=== PATIENT | female | born 1975 | race Caucasian/White ===

== ENCOUNTER 2023-03-11 15:07 | Emergency (ER) | payer OTHER ==
[~2023-03-11] VITALS: Ht 157.5 cm; Wt 76.7 kg
[2023-03-11 15:26] VITALS: BP 130/96; TEMP 97.8; O2SAT 98
[2023-03-11] MEDS ORDERED: ACETAMINOPHEN ES 500 MG TABLET PO ONE (17:00)
[2023-03-11] MEDS ORDERED: ACETAMINOPHEN ES 500 MG TABLET ONE (17:12)
[2023-03-11] MEDS ORDERED: CYCL5TAB PO (17:40)
[2023-03-11] MEDS ORDERED: ACET-2605 PO (17:40)
== END 2023-03-11 18:35 | disposition home or self-care (01) ==
LOC: ER 15:09
DX: M54.2 Cervicalgia (principal); R51.9 Headache, unspecified; Z98.890 Other specified postprocedural states; Z79.899 Other long term (current) drug therapy; Z88.0 Allergy status to penicillin; Z91.040 Latex allergy status; V43.52XA Car driver injured in collision with other type car in traffic accident, initial encounter; Y93.89 Activity, other specified; Y92.89 Other specified places as the place of occurrence of the external cause; Y99.8 Other external cause status
CPT/HCPCS: 99283; J7030

== ENCOUNTER 2023-06-05 17:26 | Emergency (ER) | payer OTHER ==
[~2023-06-05] VITALS: Ht 157.5 cm; Wt 77.1 kg
[~2023-06-05 17:26] MED LIST: ACET-2605 PO; CYCL5TAB PO
[2023-06-05 18:24] LABS: BASOPHILS % (AUTO) 0.7 % (0.0-2.0); EOSINOPHILS # (AUTO) 0.1 K/uL (0.0-0.7); EOSINOPHILS % (AUTO) 1.8 % (0.0-6.0); HEMATOCRIT 34 % (33-45); HEMOGLOBIN 11.3 g/dL (11.5-14.8); LYMPHOCYTES # (AUTO) 2.3 K/uL (0.8-4.8); MEAN CORPUSCULAR HEMOGLOBIN 25 PG (26.0-33.0); MEAN CORPUSCULAR HGB CONC 33 g/dl (31.0-36.0); MEAN CORPUSCULAR VOLUME 76 fL (82-100); MONOCYTES # (AUTO) 0.4 K/uL (0.1-1.30); MONOCYTES % (AUTO) 7.2 % (2.0-12.0); NEUTROPHILS # (AUTO) 2.8 K/uL (1.8-8.9); NEUTROPHILS % (AUTO) 49.3 % (43.0-81.0); PLATELET COUNT (AUTO) 288 K/uL (150-450); RED CELL DISTRIBUTION WIDTH 26.9 % (11.5-15.0); WHITE BLOOD COUNT (AUTO) 5.7 K/uL (4.3-11.0)
[2023-06-05] MEDS ORDERED: METOCLOPRAMIDE HCL 10 MG/2 ML VIAL IV ONE (18:30)
[2023-06-05] MEDS ORDERED: diphenhydrAMINE HCL 50 MG/ML VIAL IV ONE (18:30)
[2023-06-05] MEDS ORDERED: ACETAMINOPHEN 325 MG TABLET PO ONE (18:30)
[2023-06-05 18:39] LABS: CALCIUM, SERUM 8.8 mg/dL (8.5-10.1); CARBON DIOXIDE 26 mmol/L (21-32); CHLORIDE 106 mmol/L (98-107); CREATININE 0.5 mg/dL (0.6-1.3); GLUCOSE 98 mg/dL (74-106); POTASSIUM 3.7 mmol/L (3.5-5.1); SODIUM SERUM 139 mmol/L (136-145); UREA NITROGEN, BLOOD 7 mg/dL (7-18)
[2023-06-05 18:52] LABS: NT-PRO BNP 274 pg/mL (0-125)
[2023-06-05] MEDS ORDERED: IOHEXOL-350 100 ML VIAL IV ONE (19:05)
[2023-06-05] MEDS ORDERED: IV NS 0.9% 250 ML IV ONE (19:05)
[2023-06-05] MEDS ORDERED: CT SWABBABLE VALVE TRANS SET 1 EA INFUS.SET MC ONE (19:05)
[2023-06-05] MEDS ORDERED: diphenhydrAMINE HCL 50 MG/ML VIAL ONE (19:15)
[2023-06-05] MEDS ORDERED: METOCLOPRAMIDE HCL 10 MG/2 ML VIAL ONE (19:16)
[2023-06-05] MEDS ORDERED: ACETAMINOPHEN 325 MG TABLET ONE (19:16)
[2023-06-05] MEDS ORDERED: AMLO2.5T4 PO (22:31)
[2023-06-05 22:50] VITALS: BP 131/88; TEMP 98.1; O2SAT 99
== END 2023-06-05 22:58 | disposition home or self-care (01) ==
LOC: ER 17:30
DX: R07.9 Chest pain, unspecified (principal); I10 Essential (primary) hypertension; R51.9 Headache, unspecified; R10.2 Pelvic and perineal pain; E78.5 Hyperlipidemia, unspecified; I48.91 Unspecified atrial fibrillation; Z88.0 Allergy status to penicillin; Z88.8 Allergy status to other drugs, medicaments and biological substances
CPT/HCPCS: 99285; 70498; 71045; 93005; 70496; 85025; 80048; 36415; 84484; 83880; 84702; J1200; J7050; Q9967; J2765

== ENCOUNTER 2023-06-11 17:34 | Emergency (ER) | payer OTHER ==
[~2023-06-11] VITALS: Ht 157.5 cm; Wt 76.7 kg
[~2023-06-11 17:34] MED LIST changes: +AMLO2.5T4 PO
[2023-06-11] MEDS ORDERED: ACETAMINOPHEN ES 500 MG TABLET ONE (17:57)
[2023-06-11] MEDS ORDERED: METOCLOPRAMIDE HCL 10 MG/2 ML VIAL ONE (17:57)
[2023-06-11] MEDS ORDERED: diphenhydrAMINE HCL 50 MG/ML VIAL ONE (17:58)
[2023-06-11] MEDS: IV NS 0.9% 1,000 ML BAG IV ONE (18:07)
[2023-06-11] MEDS: diphenhydrAMINE HCL 50 MG/ML VIAL IV ONE (18:07)
[2023-06-11] MEDS: METOCLOPRAMIDE HCL 10 MG/2 ML VIAL IV ONE (18:08)
[2023-06-11] MEDS: ACETAMINOPHEN ES 500 MG TABLET PO ONE (18:08)
[2023-06-11 18:20] LABS: BASOPHILS % (AUTO) 0.7 % (0.0-2.0); EOSINOPHILS # (AUTO) 0.1 K/uL (0.0-0.7); EOSINOPHILS % (AUTO) 1.5 % (0.0-6.0); HEMATOCRIT 38 % (33-45); HEMOGLOBIN 12.4 g/dL (11.5-14.8); LYMPHOCYTES # (AUTO) 2.8 K/uL (0.8-4.8); LYMPHOCYTES % (AUTO) 39.4 % (20.0-44.0); MEAN CORPUSCULAR HEMOGLOBIN 26 PG (26.0-33.0); MEAN CORPUSCULAR HGB CONC 33 g/dl (31.0-36.0); MEAN CORPUSCULAR VOLUME 79 fL (82-100); MONOCYTES # (AUTO) 0.6 K/uL (0.1-1.30); MONOCYTES % (AUTO) 7.8 % (2.0-12.0); NEUTROPHILS # (AUTO) 3.6 K/uL (1.8-8.9); NEUTROPHILS % (AUTO) 50.6 % (43.0-81.0); PLATELET COUNT (AUTO) 282 K/uL (150-450); RED BLOOD CELL COUNT(AUTO) 4.84 MIL/uL (4.0-5.2); RED CELL DISTRIBUTION WIDTH 25.2 % (11.5-15.0); WHITE BLOOD COUNT (AUTO) 7.2 K/uL (4.3-11.0)
[2023-06-11 18:44] LABS: CALCIUM, SERUM 9.6 mg/dL (8.5-10.1); CREATININE 0.5 mg/dL (0.6-1.3); POTASSIUM 3.3 mmol/L (3.5-5.1)
[2023-06-11 18:45] LABS: ALBUMIN 3.9 g/dL (3.4-5.0); BILIRUBIN,DIRECT 0.1 mg/dL (0.0-0.2); BILIRUBIN,TOTAL 0.2 mg/dL (0.2-1.0); TOTAL PROTEIN, SERUM 7.6 g/dL (6.4-8.2)
[2023-06-11] MEDS ORDERED: METO-295 PO (20:03)
[2023-06-12 03:10] VITALS: BP 163/98; TEMP 97.6; O2SAT 100
== END 2023-06-11 22:00 | disposition home or self-care (01) ==
LOC: ER 17:34
DX: R51.9 Headache, unspecified (principal); I48.91 Unspecified atrial fibrillation; Z88.0 Allergy status to penicillin; Z88.8 Allergy status to other drugs, medicaments and biological substances
CPT/HCPCS: 99285; 96374; 70450; 96361; 96375; 93005; 85025; 80048; 80076; 36415; J1200; J2765; J7030

== ENCOUNTER 2024-04-27 12:16 | Emergency (ER) | payer MEDICAID, OTHER ==
[~2024-04-27] VITALS: Ht 157.5 cm; Wt 77.1 kg
[~2024-04-27 12:16] MED LIST changes: +METO-295 PO
[2024-04-27] MEDS: IV NS 0.9% 1,000 ML BAG IV ONE ×2 (13:17→17:33)
[2024-04-27] MEDS ORDERED: ONDANSETRON HCL/PF 4 MG/2 ML VIAL ONE (13:19)
[2024-04-27] MEDS ORDERED: KETOROLAC TROMETHAMINE 15 MG/ML VIAL ONE (13:19)
[2024-04-27] MEDS: KETOROLAC TROMETHAMINE 15 MG/ML VIAL IV ONE (13:24)
[2024-04-27] MEDS: ONDANSETRON HCL/PF 4 MG/2 ML VIAL IVP ONE (13:24)
[2024-04-27 13:34] LABS: CALCIUM, SERUM 8.6 mg/dL (8.5-10.1); CREATININE 0.6 mg/dL (0.6-1.3); POTASSIUM 3.5 mmol/L (3.5-5.1)
[2024-04-27 13:40] LABS: ALBUMIN 3.2 g/dL (3.4-5.0); BILIRUBIN,DIRECT 0.1 mg/dL (0.0-0.2); BILIRUBIN,TOTAL 0.3 mg/dL (0.2-1.0)
[2024-04-27 13:47] LABS: APPEARANCE,URINE CLEAR (CLEAR); BILIRUBIN,URINE 1+ (NEGATIVE); BLOOD, URINE 3+ Ery/uL (NEGATIVE); COLOR,URINE YELLOW (YELLOW); KETONES,URINE 2+ mg/dL (NEGATIVE); LEUKOCYTE ESTERASE ,URINE NEGATIVE (NEGATIVE); NITRITE, URINE NEGATIVE (NEGATIVE); PROTEIN,URINE 1+ mg/dl (NEGATIVE); UGLUCOSE NEGATIVE (NEGATIVE); UROBILINOGEN,URINE 0.2 EU/dL (0.2)
[2024-04-27 13:47] LABS: BASOPHILS % (AUTO) 0.3 % (0.0-2.0); HEMATOCRIT 35 % (33-45); LYMPHOCYTES # (AUTO) 0.6 K/uL (0.8-4.8); LYMPHOCYTES % (AUTO) 7.9 % (20.0-44.0); MEAN CORPUSCULAR HEMOGLOBIN 28 PG (26.0-33.0); MEAN CORPUSCULAR HGB CONC 34 g/dl (31.0-36.0); MEAN CORPUSCULAR VOLUME 81 fL (82-100); MONOCYTES # (AUTO) 0.6 K/uL (0.1-1.30); MONOCYTES % (AUTO) 7.2 % (2.0-12.0); NEUTROPHILS # (AUTO) 6.8 K/uL (1.8-8.9); NEUTROPHILS % (AUTO) 84.6 % (43.0-81.0); PLATELET COUNT (AUTO) 217 K/uL (150-450); RED BLOOD CELL COUNT(AUTO) 4.32 MIL/uL (4.0-5.2); RED CELL DISTRIBUTION WIDTH 22.2 % (11.5-15.0)
[2024-04-27 14:00] LABS: PREGNANCY TEST URINE QUAL NEGATIVE (NEGATIVE)
[2024-04-27] MEDS ORDERED: IV NS 0.9% 250 ML IV ONE (14:00)
[2024-04-27] MEDS ORDERED: IOHEXOL-300 100 ML VIAL IV ONE (14:00)
[2024-04-27 14:18] LABS: ADD URINE CULTURE NO; RBC,URINE 21-50 /HPF (0-2); WBC,URINE 0-2 /HPF (0-3)
[2024-04-27 14:19] LABS: BACTERIA,URINE Rare /HPF (None Seen); SQUAMOUS EPITHELIAL CELL,UR Few /HPF (None Seen); URINE AMORPHOUS URATE Few /HPF (None Seen)
[2024-04-27 14:20] LABS: MUCUS,URINE Few /LPF (None Seen)
[2024-04-27 14:22] LABS: INR 1.22 (0.91-1.10); PARTIAL THROMBOPLASTIN TIME 36.1 SEC (24.3-34.3); PROTHROMBIN TIME 12.8 SECS (9.2-11.1)
[2024-04-27] MEDS ORDERED: ACETAMINOPHEN ES 500 MG TABLET ONE (17:07)
[2024-04-27] MEDS ORDERED: CIPROFLOXACIN HCL 250 MG TABLET ONE (17:07)
[2024-04-27] MEDS ORDERED: METRONIDAZOLE 500 MG TABLET ONE (17:08)
[2024-04-27] MEDS: ACETAMINOPHEN ES 500 MG TABLET PO ONE (17:33)
[2024-04-27] MEDS: METRONIDAZOLE 500 MG TABLET PO ONE (17:33)
[2024-04-27] MEDS: CIPROFLOXACIN HCL 250 MG TABLET PO ONE (17:33)
[2024-04-27] MEDS ORDERED: METR-147 PO (19:11)
[2024-04-27] MEDS ORDERED: CIPR-262 PO (19:11)
[2024-04-27 19:22] VITALS: BP 109/69; TEMP 98.7; O2SAT 100
== END 2024-04-27 19:23 | disposition home or self-care (01) ==
LOC: ER 12:26
DX: R10.32 Left lower quadrant pain (principal); R11.2 Nausea with vomiting, unspecified; R19.7 Diarrhea, unspecified; Z86.73 Personal history of transient ischemic attack (TIA), and cerebral infarction without residual deficits; R10.2 Pelvic and perineal pain; Z98.84 Bariatric surgery status; Z86.69 Personal history of other diseases of the nervous system and sense organs; Z20.822 Contact with and (suspected) exposure to COVID-19; Z88.0 Allergy status to penicillin
CPT/HCPCS: 99285; 74177; 96374; 96361; 87426; 87804 ×2; 85025; 80048; 83690; 80076; 84703; 81001; 36415; 87420; 85730; J2405; J7030 ×2; J7050; Q9967; J1885

== ENCOUNTER 2025-04-10 01:15 | Emergency (ER) | payer MEDICAID, OTHER ==
[~2025-04-10 01:15] MED LIST changes: +CIPR-262 PO; +METR-147 PO
== END 2025-04-10 01:45 | disposition left against medical advice (07) ==
LOC: ER 01:21
DX: K92.0 Hematemesis (principal)